=== PATIENT | female | born 1995 | race African-American/Black ===

== ENCOUNTER 2021-02-28 00:29 | Emergency (ER) | payer MEDICAID ==
[~2021-02-28] VITALS: Ht 167.6 cm; Wt 107.0 kg
[2021-02-28] MEDS ORDERED: ACETAMINOPHEN 325MG TABLET PO ONE (01:00)
[2021-02-28 01:40] VITALS: BP 122/88
== END 2021-02-28 01:50 | disposition home or self-care (01) ==
LOC: ER 00:29
DX: M25.511 Pain in right shoulder (principal); Z98.890 Other specified postprocedural states; Y04.0XXA Assault by unarmed brawl or fight, initial encounter; Y93.89 Activity, other specified; Y92.018 Other place in single-family (private) house as the place of occurrence of the external cause
CPT/HCPCS: 73030; 81025; 99283

== ENCOUNTER 2021-05-07 12:12 | Emergency (ER) | payer MEDICAID ==
[~2021-05-07] VITALS: Ht 167.6 cm; Wt 100.8 kg
[2021-05-07 12:32] VITALS: BP 118/77
[2021-05-07] MEDS ORDERED: ACETAMINOPHEN 325MG TABLET PO ONE (14:00)
[2021-05-07 14:17] LABS: CLARITY URINE CLEAR (CLEAR); COLOR URINE ORANGE (YELLOW); KETONES URINE NEGATIVE (NEGATIVE); LEUKOCYTE ESTERASE URINE TRACE (NEGATIVE); NITRITE URINE NEGATIVE (NEGATIVE); OCCULT BLOOD URINE 3+ (NEGATIVE); PH URINE 7.5 (4.5-8.0); PROTEIN URINE 1+ (NEGATIVE)
[2021-05-07 14:25] LABS: BASOPHILS % 0.4 % (0.0-2.0); EOSINOPHILS % 1.2 % (0.0-5.0); HEMATOCRIT. 39.7 % (36.0-48.0); HEMOGLOBIN. 13.6 g/dL (12.0-16.0); LYMPHOCYTES % 28.5 % (20.0-50.0); MEAN CORPUSCULAR HEMOGLOBIN 30.6 pg (28.0-32.0); MEAN CORPUSCULAR VOLUME 89.2 fL (81.0-99.0); MEAN PLATELET VOLUME 9.3 fl (7.4-10.4); MONOCYTES % 4.5 % (2.0-8.0); NEUTROPHILS % 65.4 % (40.0-76.0); PLATELET 275 x1000/uL (130-400); RED BLOOD CELL COUNT 4.46 mill/uL (4.2-5.4); RED CELL DISTRIBUTION WIDTH 13.5 % (11.6-14.6)
[2021-05-07 14:32] LABS: CHLORIDE 108 mEq/L (98-107)
[2021-05-07 14:44] LABS: B-HCG QUANTITATIVE < 1 mIU/mL (<3)
[2021-05-07] MEDS ORDERED: IBUP-2028 MT (16:12)
== END 2021-05-07 16:24 | disposition home or self-care (01) ==
LOC: ER 12:12
DX: D25.9 Leiomyoma of uterus, unspecified (principal); R10.9 Unspecified abdominal pain; J40 Bronchitis, not specified as acute or chronic
CPT/HCPCS: 36415; 76830; 76856; 80053; 81003; 81025; 84702; 85025; 86850; 86900; 99284

== ENCOUNTER 2021-11-16 17:04 | Emergency (ER) | payer MEDICAID ==
[~2021-11-16] VITALS: Ht 170.2 cm; Wt 104.0 kg
[~2021-11-16 17:04] MED LIST: IBUP-2028 MT
[2021-11-16 17:12] VITALS: BP 113/65
[2021-11-16] MEDS ORDERED: ACETAMINOPHEN 325MG TABLET PO ONE (19:30)
== END 2021-11-16 22:40 | disposition left against medical advice (07) ==
LOC: ER 17:04
DX: S00.83XA Contusion of other part of head, initial encounter (principal); J45.909 Unspecified asthma, uncomplicated; Z98.890 Other specified postprocedural states; Y00.XXXA Assault by blunt object, initial encounter; Y93.89 Activity, other specified; Y92.89 Other specified places as the place of occurrence of the external cause
CPT/HCPCS: 70486; 99284